=== PATIENT | male | born 1980 | race Caucasian/White ===

== ENCOUNTER 2019-07-30 17:39 | Emergency (ER) | payer BC ==
[2019-07-30 17:57] VITALS: BP 124/82
--- NOTE | 2019-07-30 19:40 | UC ---
UC General HPI - HPI Summary HPI Summary: 38 yo gentleman presents for evaluation R ear pain, pruritus. Sx have been chronic and recurrent over the last 2 years. Lately has been much worse, today noticed a firm whitish piece of wax come out of ear and wanted to make sure it wasn't problematic. Hx chronic sinus issues, periodically takes augmentin but not in a long time. No current pcp, but is looking for a pcp. No recent fever / chills. No sob / cp. No visual issues. But hearing is muffled in R ear. - History of Current Complaint Chief Complaint: UCEar Stated Complaint: EAR ACHE Time Seen by Provider: 07/30/19 18:49 Hx Obtained From: Patient Pain Intensity: 3 - Allergy/Home Medications Allergies/Adverse Reactions: Allergies Allergy/AdvReac Type Severity Reaction Status Date / Time No Known Allergies Allergy Verified 07/30/19 17:57 Home Medications: Home Medications Ibuprofen 600 mg PO DAILY WITH MEAL 07/30/19 [History Confirmed 07/30/19] Pseudoephedrine HCl [Sudafed] 30 mg PO DAILY WITH MEAL 07/30/19 [History Confirmed 07/30/19] PMH/Surg Hx/FS Hx/Imm Hx Previously Healthy: Yes - Surgical History Surgical History: Yes Surgery Procedure, Year, and Place: tonsils. right wrist. right foot ligament. sinus - Family History Known Family History: Positive: Unknown - Social History Alcohol Use: Occasionally Substance Use Type: None Smoking Status (MU): Never Smoked Tobacco Review of Systems All Other Systems Reviewed And Are Negative: Yes Constitutional: Positive: Negative Skin: Positive: Other - see hpi Eyes: Positive: Negative ENT: Positive: Other - see hpi Respiratory: Positive: Negative Cardiovascular: Positive: Negative Gastrointestinal: Positive: Negative Genitourinary: Positive: Negative Motor: Positive: Negative Neurovascular: Positive: Negative Musculoskeletal: Positive: Negative Neurological: Positive: Negative Psychological: Positive: Negative Is Patient Immunocompromised?: No Physical Exam Triage Information Reviewed: Yes Appearance: Well-Appearing, Well-Nourished Vital Signs: Initial Vital Signs Temp 97.5 F 07/30/19 17:53 Pulse 64 07/30/19 17:53 Resp 18 07/30/19 17:53 BP 124/82 07/30/19 17:53 Pulse Ox 100 07/30/19 17:53 Vital Signs Reviewed: Yes Eye Exam: Normal ENT: Positive: Pharynx normal, Other Neck exam: Other - see above Neck: Positive: Nontender Respiratory Exam: Normal Cardiovascular Exam: Normal Abdominal Exam: Normal Musculoskeletal Exam: Normal - gr Neurological Exam: Normal - grossly nonfocal subj muffled hearing R Psychological Exam: Normal - conversing easily and appropriately nad Skin Exam: Normal Course/Dx - Course Course Of Treatment: Reviewed with pt coa / tx plan. There is a great deal of cerumn in R eac, along with some swelling. TM as visible (dark reeder) intact. Clinically may have some eustacian tube dysfunction. In the setting of chronic sinusitis (clinically and pt report) There is an area of firm swelling L ant neck. See Phys exam re description. He is looking for a pcp, and plans to f/u rachid. Meanwhile, will refer to ENT for further eval / tx of ear issue, but particularly for ant neck issue. D/w pt, he expresss understanding and gratitude. Questions as posed answered to the best of my ability. - Diagnoses Provider Diagnosis: Otitis externa, Serous otitis media, Dermatitis Discharge ED - Sign-Out/Discharge Documenting (check all that apply): Patient Departure All imaging exams completed and their final reports reviewed: No Studies - Discharge Plan Condition: Stable Disposition: HOME Prescriptions: Ciprofloxacin TAB* [Cipro 500 MG TAB*] 500 mg PO BID #14 tab Neomyc/Polym/HC 1% OTIC SUSP* [Cortisporin Otic Susp 1%*] 4 drop RIGHT EAR TID # 1 btl predniSONE TAB* [Deltasone 10 MG TAB*] 10 mg PO DAILY #14 tab Patient Education Materials: Otitis Externa (ED), Serous Otitis Media (ED), Dermatitis (ED) Referrals: [facility] [place] [facility] REFERR[facility] [Outside] No Primary Care Phys,NOPCP [Primary Care Provider] - Aashish Yoder MD [Medical Doctor] - Additional Instructions: In addition to the above, you also have a neck nodule. Please have this checked, even if it's been there a while. Please follow up with primary care physician, as soon as you are able. If possible in the next 4 weeks. Follow up with ENT in the next 2 weeks if possible. Please seek medical attention for worse or new problems. - Billing Disposition and Condition Condition: STABLE Disposition: Home
== END 2019-07-30 19:34 | disposition home or self-care (01) ==
LOC: UCEAST 17:39
DX: H60.91 Unspecified otitis externa, right ear (principal); H65.91 Unspecified nonsuppurative otitis media, right ear; L30.9 Dermatitis, unspecified
CPT/HCPCS: 99202; G0463